=== PATIENT | male | born 1955 ===

== ENCOUNTER 2024-04-21 07:53 | Outpatient (CLI) | payer OTHER | END 2024-04-21 07:56 | disposition home or self-care (01) | LOC: SONOGRAMA 07:53 | PROVIDERS: ATTEND Internal Medicine Gastroenterology | DX: K59.09 Other constipation (principal); Z80.0 Family history of malignant neoplasm of digestive organs; E66.01 Morbid (severe) obesity due to excess calories; E78.5 Hyperlipidemia, unspecified ==